=== PATIENT | male | born 1990 | race Hispanic/Latino ===

== ENCOUNTER 2023-01-19 08:04 | Emergency (ER) | payer OTHER ==
[~2023-01-19] VITALS: Ht 180.3 cm; Wt 114.6 kg
[2023-01-19 11:12] LABS: BASO # 0.1 10^3/uL (0.0-0.2); BASO % 0.7 % (0.0-1.0); EOS # 0.4 10^3/uL (0.0-0.5); EOS % 6.2 % (0.0-3.0); HEMATOCRIT 45.5 % (42.0-52.0); HEMOGLOBIN 15.6 g/dl (13.5-17.5); LYMPH # 1.8 10^3/uL (1.5-5.0); LYMPH % 27.1 % (24.0-44.0); MEAN CORPUSCULAR HEMOGLOBIN 29.2 pg (27.0-33.0); MEAN CORPUSCULAR HGB CONC 34.3 g/dl (32.0-36.5); MONO # 0.4 10^3/uL (0.0-0.8); MONO % 5.6 % (2.0-8.0); NEUTROPHILS # 4.1 10^3/uL (1.5-8.5); PLATELET COUNT, AUTOMATED 244 10^3/uL (150-450); RED BLOOD COUNT 5.35 10^6/uL (4.30-6.10); WHITE BLOOD COUNT 6.8 10^3/uL (4.0-10.0)
[2023-01-19 11:33] LABS: LIPASE 35 U/L (12-53)
[2023-01-19 11:34] LABS: CK-MB VALUE MASS < 1.0 NG/ML (<3.6)
[2023-01-19 11:35] LABS: ALBUMIN 4.7 G/DL (3.2-5.2); ALKALINE PHOSPHATASE 98 U/L (46-116); ALT/SGPT 19 U/L (7.0-40); AST/SGOT < 8 U/L (<34); BILIRUBIN,DIRECT 0.2 MG/DL (<0.4); BILIRUBIN,TOTAL 0.5 MG/DL (0.3-1.2); BLOOD UREA NITROGEN 19 MG/DL (9-23); CALCIUM LEVEL 9.7 MG/DL (8.5-10.1); CARBON DIOXIDE LEVEL 28 MMOL/L (20-31); CHLORIDE LEVEL 103 MMOL/L (98-107); CREATININE FOR GFR 0.88 MG/DL (0.70-1.30); GLOMERULAR FILTRATION RATE > 60.0 (>60); GLUCOSE, FASTING 92 MG/DL (60-100); POTASSIUM SERUM 4.6 MMOL/L (3.5-5.1); SODIUM LEVEL 138 MMOL/L (136-145); TOTAL PROTEIN 7.8 G/DL (5.7-8.2)
[2023-01-19 11:39] LABS: CPK CREATINE PHOSPHOKINASE 113 U/L (46-171); MB/CK RELATIVE INDEX 0.88 (< OR =4)
[2023-01-19 12:42] VITALS: BP 128/80; TEMP 98.4; O2SAT 99
== END 2023-01-19 12:46 | disposition home or self-care (01) ==
LOC: M ED 08:04
DX: R07.89 Other chest pain (principal); Z82.49 Family history of ischemic heart disease and other diseases of the circulatory system; Z88.6 Allergy status to analgesic agent

== ENCOUNTER → 2023-04-13 | Outpatient (CLI) | payer OTHER | LOC: M SOG 13:14 | PROVIDERS: ATTEND Physician Assistant | DX: M25.531 Pain in right wrist (principal) ==

== ENCOUNTER 2023-06-04 06:01 | Day surgery (SDC) | payer OTHER ==
[~2023-06-04] VITALS: Ht 180.3 cm; Wt 127.8 kg
[2023-06-04] MEDS ORDERED: MIDAZOLAM INJ 2MG/2ML VIAL As Ordered ONE (07:25)
[2023-06-04] MEDS ORDERED: fentaNYL 100 MCG/2 ML INJECTION As Ordered ONE ×2 (07:25→10:12)
[2023-06-04] MEDS ORDERED: LIDOCAINE 2% 100MG/5ML SDV (FOR ANES.) As Ordered ONE (07:27)
[2023-06-04] MEDS ORDERED: ONDANSETRON 4MG 2ML VIAL As Ordered ONE (07:27)
[2023-06-04] MEDS ORDERED: propofoL 200 MG/20 ML VIAL As Ordered ONE ×2 (07:27→09:59)
[2023-06-04] MEDS ORDERED: ceFAZolin SOD 3 GM in IV 1 EA IV ONE (07:35)
[2023-06-04] MEDS ORDERED: ceFAZolin SOD 1 GM in D5W MINI-BAG PLUS 50 ML IV ONE (08:00)
[2023-06-04] MEDS ORDERED: ceFAZolin SOD 2 GM in IV 1 EA IV ONE (08:00)
[2023-06-04] MEDS ORDERED: BACITRACIN OINTMENT 30GM TUBE As Ordered ONE (09:20)
[2023-06-04] MEDS ORDERED: ACETAMINOPHEN 1000MG 100ML IV BAG As Ordered ONE (09:48)
[2023-06-04] MEDS ORDERED: dexmedeTOMIDine (4MCG/ML)200MCG/50ML BTL (PRECEDEX) As Ordered ONE (09:57)
[2023-06-04] MEDS ORDERED: SEVOFLURANE INHAL SOLN 250 ML BTL As Ordered ONE (10:37)
[2023-06-04] MEDS ORDERED: HYDROMORPHONE HCL 0.5 MG/ 0.5 ML SYRINGE IV PRN (10:50)
[2023-06-04] MEDS ORDERED: fentaNYL 100 MCG/2 ML INJECTION IV PRN (10:50)
[2023-06-04] MEDS ORDERED: ONDANSETRON 4MG 2ML VIAL IV PRN (10:50)
[2023-06-04] MEDS ORDERED: oxyCODONE 5MG TAB PO PRN (10:50)
[2023-06-04] MEDS ORDERED: LR 1,000 ML IV SCH (10:50)
[2023-06-04] MEDS ORDERED: PERC5TAB12 PO (10:53)
[2023-06-04 11:26] VITALS: BP 129/65; TEMP 97.9; O2SAT 96
== END 2023-06-04 11:58 | disposition home or self-care (01) ==
LOC: M SDC 06:01
PROVIDERS: ATTEND Orthopaedic Surgery Hand Surgery
DX: M67.431 Ganglion, right wrist (principal); R07.9 Chest pain, unspecified; G47.9 Sleep disorder, unspecified; Z88.6 Allergy status to analgesic agent; Z91.013 Allergy to seafood
CPT/HCPCS: 25111; 88305; J0131; J0665; J1100; J2250; J2405; J3010

== ENCOUNTER 2024-01-14 10:50 | Emergency (ER) | payer OTHER ==
[~2024-01-14] VITALS: Ht 180.3 cm; Wt 128.9 kg
[~2024-01-14 10:50] MED LIST: PERC5TAB12 PO
[2024-01-14] MEDS ORDERED: DULO1CAP4 PO (10:57)
[2024-01-14] MEDS ORDERED: ACET-907 PO (10:57)
[2024-01-14 11:50] LABS: BASO # 0.1 10^3/uL (0.0-0.2); BASO % 0.7 % (0.0-1.0); EOS # 0.3 10^3/uL (0.0-0.5); EOS % 4.5 % (0.0-3.0); HEMATOCRIT 40.9 % (42.0-52.0); HEMOGLOBIN 14.4 g/dl (13.5-17.5); LYMPH # 1.6 10^3/uL (1.5-5.0); LYMPH % 24.2 % (24.0-44.0); MEAN CORPUSCULAR HGB CONC 35.2 g/dl (32.0-36.5); MEAN CORPUSCULAR VOLUME 82.3 fl (80.0-96.0); MONO # 0.4 10^3/uL (0.0-0.8); MONO % 6.2 % (2.0-8.0); NEUTROPHILS # 4.3 10^3/uL (1.5-8.5); NEUTROPHILS % 64.1 % (36.0-66.0); PLATELET COUNT, AUTOMATED 232 10^3/uL (150-450); RED BLOOD COUNT 4.97 10^6/uL (4.30-6.10); WHITE BLOOD COUNT 6.7 10^3/uL (4.0-10.0)
[2024-01-14 12:24] LABS: LIPASE 30 U/L (12-53)
[2024-01-14 12:26] LABS: ALBUMIN 4.4 G/DL (3.2-5.2); ALKALINE PHOSPHATASE 104 U/L (46-116); ALT/SGPT 28 U/L (7.0-40); AST/SGOT 15 U/L (<34); BILIRUBIN,DIRECT 0.2 MG/DL (<0.4); BILIRUBIN,TOTAL 0.6 MG/DL (0.3-1.2); BLOOD UREA NITROGEN 14 MG/DL (9-23); CALCIUM LEVEL 9.2 MG/DL (8.5-10.1); CARBON DIOXIDE LEVEL 27 MMOL/L (20-31); CHLORIDE LEVEL 102 MMOL/L (98-107); CK-MB VALUE MASS < 1.0 NG/ML (<3.6); CREATININE FOR GFR 0.93 MG/DL (0.70-1.30); GLOMERULAR FILTRATION RATE > 60.0 (>60); GLUCOSE, FASTING 87 MG/DL (60-100); POTASSIUM SERUM 3.9 MMOL/L (3.5-5.1); SODIUM LEVEL 135 MMOL/L (136-145); TOTAL PROTEIN 7.1 G/DL (5.7-8.2)
[2024-01-14 12:28] LABS: FREE T4 1.14 NG/DL (0.89-1.76); THYROID STIMULATING HORMONE 0.896 uIU/ML (0.55-4.78)
[2024-01-14 12:30] LABS: CPK CREATINE PHOSPHOKINASE 93 U/L (46-171); MB/CK RELATIVE INDEX 1.07 (< OR =4)
[2024-01-14] MEDS: ACETAMINOPHEN 325 MG TAB PO ONE (12:51)
[2024-01-14] MEDS: hydrOXYzine 50 MG TAB PO STA (12:51)
[2024-01-14 13:15] LABS: CK-MB VALUE MASS < 1.0 NG/ML (<3.6)
[2024-01-14 13:18] VITALS: BP 120/68; TEMP 97.1; O2SAT 100
[2024-01-14 13:19] LABS: CPK CREATINE PHOSPHOKINASE 98 U/L (46-171); MB/CK RELATIVE INDEX 1.02 (< OR =4)
[2024-01-14] MEDS ORDERED: HYDR-3363 PO (13:55)
== END 2024-01-14 14:01 | disposition home or self-care (01) ==
LOC: M ED 10:50
DX: R07.89 Other chest pain (principal); F41.9 Anxiety disorder, unspecified; Z88.8 Allergy status to other drugs, medicaments and biological substances; Z79.1 Long term (current) use of non-steroidal anti-inflammatories (NSAID); Z79.899 Other long term (current) drug therapy

== ENCOUNTER → 2024-03-17 | Outpatient (REF) ==
[~2024-03-17] MED LIST changes: +ACET-907 PO; +DULO1CAP4 PO; +HYDR-3363 PO
== END ==
LOC: M PLAIMG 10:40
PROVIDERS: ATTEND Internal Medicine
DX: R52 Pain, unspecified (principal)

== ENCOUNTER 2024-04-22 16:14 | Inpatient (IN) | payer OTHER ==
[~2024-04-22] VITALS: Ht 180.3 cm; Wt 136.7 kg
[2024-04-22 17:02] LABS: HEMATOCRIT 41.3 % (42.0-52.0); HEMOGLOBIN 14.4 g/dl (13.5-17.5); MEAN CORPUSCULAR HEMOGLOBIN 28.5 pg (27.0-33.0); MEAN CORPUSCULAR HGB CONC 34.9 g/dl (32.0-36.5); MEAN CORPUSCULAR VOLUME 81.6 fl (80.0-96.0); PLATELET COUNT, AUTOMATED 291 10^3/uL (150-450); RED BLOOD COUNT 5.06 10^6/uL (4.30-6.10); WHITE BLOOD COUNT 8.8 10^3/uL (4.0-10.0)
[2024-04-22 17:33] LABS: ETHYL ALCOHOL (ETHANOL) < 0.003 % (0.000-0.010)
[2024-04-22 17:35] LABS: ALBUMIN 4.2 G/DL (3.2-5.2); ALKALINE PHOSPHATASE 102 U/L (40-129); ALT/SGPT 56 U/L (7.0-40); AST/SGOT 18 U/L (<34); BILIRUBIN,DIRECT 0.1 MG/DL (<0.4); BILIRUBIN,TOTAL 0.3 MG/DL (0.3-1.2); BLOOD UREA NITROGEN 14 MG/DL (9-23); CALCIUM LEVEL 9.9 MG/DL (8.5-10.1); CARBON DIOXIDE LEVEL 24 MMOL/L (20-31); CHLORIDE LEVEL 106 MMOL/L (98-107); CREATININE FOR GFR 0.84 MG/DL (0.70-1.30); GLOMERULAR FILTRATION RATE > 60.0 (>60); GLUCOSE, FASTING 92 MG/DL (60-100); SALICYLATE LEVEL < 3.0 MG/DL (<30); SODIUM LEVEL 137 MMOL/L (136-145); TOTAL PROTEIN 7.7 G/DL (5.7-8.2)
[2024-04-22 17:38] LABS: THYROID STIMULATING HORMONE 1.913 uIU/ML (0.55-4.78)
[2024-04-22] MEDS ORDERED: D 50CAP2 PO (17:42)
[2024-04-22] MEDS ORDERED: DULO1CAP5 PO (17:42)
[2024-04-22] MEDS ORDERED: med rec comment (17:43)
[2024-04-22] MEDS ORDERED: HOME MED LIST COMPLETE! XX SCH (17:45)
[2024-04-22 18:14] LABS: AMPHETAMINES LEVEL URINE NEGATIVE (NEGATIVE); BARBITURATES URINE NEGATIVE (NEGATIVE); BENZODIAZEPINES URINE NEGATIVE (NEGATIVE); CANNABINOIDS URINE NEGATIVE (NEGATIVE); COCAINE METABOLITE URINE NEGATIVE (NEGATIVE); METHADONE URINE NEGATIVE (NEGATIVE); OPIATES URINE NEGATIVE (NEGATIVE); PHENCYCLIDINE URINE NEGATIVE (NEGATIVE)
[2024-04-22] MEDS ORDERED: MAALOX 30 ML SUSP *UDC PO PRN (19:45)
[2024-04-22] MEDS ORDERED: MOM 30ML SUSPENSION UDC PO PRN (19:45)
[2024-04-22] MEDS: DULoxetine 30MG CAPSULE (CYMBALTA) PO ONE (20:31)
[2024-04-22] MEDS: diphenhydrAMINE 25MG CAP PO PRN (22:26)
[2024-04-22 22:45] VITALS: BP 130/80; TEMP 98; O2SAT 96
[2024-04-23 06:19] VITALS: BP 160/82; TEMP 97.9; O2SAT 100
[2024-04-23] MEDS: DULoxetine 30MG CAPSULE (CYMBALTA) PO SCH (13:22)
[2024-04-23 15:13] VITALS: BP 157/93; TEMP 97.2; O2SAT 99
[2024-04-23] MEDS: CALCIUM CARBONATE 500 MG CHEW U/D PO SCH (17:35)
[2024-04-23] MEDS: busPIRone 10 MG TAB PO SCH (21:45)
[2024-04-23] MEDS: DIVALPROEX 125 MG TAB PO SCH (21:46)
[2024-04-24] MEDS: ACETAMINOPHEN 325 MG TAB PO PRN (06:04)
[2024-04-24 06:25] VITALS: BP 142/89; TEMP 98.2; O2SAT 96
[2024-04-24] MEDS: PANTOPRAZOLE 40MG TAB (PROTONIX) PO SCH (08:37)
[2024-04-24 15:17] VITALS: BP 151/83; TEMP 97; O2SAT 97
[2024-04-24] MEDS: traZODone 50 MG TAB PO PRN (20:28)
[2024-04-25 06:18] VITALS: BP 141/93; TEMP 98.2; O2SAT 97
[2024-04-25 09:01] VITALS: BP 132/90; O2SAT 98
[2024-04-25 17:02] VITALS: BP 149/80; TEMP 97.4; O2SAT 100
[2024-04-26 06:27] VITALS: BP 144/88; TEMP 97.4; O2SAT 100
[2024-04-26 16:07] VITALS: BP 144/90; TEMP 98.1; O2SAT 98
[2024-04-27 06:42] VITALS: BP 140/89; TEMP 97.6; O2SAT 98
[2024-04-27 16:00] VITALS: BP 140/89; TEMP 97.6; O2SAT 98
[2024-04-27 16:24] VITALS: BP 136/75; TEMP 97.7; O2SAT 100
[2024-04-28 06:35] VITALS: BP 127/88; TEMP 96.8; O2SAT 98
[2024-04-28 15:29] VITALS: BP 139/88; TEMP 97.4; O2SAT 98
[2024-04-29 06:43] VITALS: BP 128/93; TEMP 96.6; O2SAT 99
[2024-04-29] MEDS ORDERED: DEPA1TAB PO (09:03)
[2024-04-29] MEDS ORDERED: CYMB1CAP5 PO (09:03)
[2024-04-29] MEDS ORDERED: BUSP10TA PO (09:03)
[2024-04-29] MEDS ORDERED: TRAZ-252 PO (09:03)
[2024-04-29] MEDS ORDERED: PANT40TA29 PO (09:03)
== END 2024-04-29 11:00 | disposition home or self-care (01) | DRG 885 ==
LOC: M ED 16:14 → EDBD 16:14 → M ED INP 19:44 → M PSY 21:50
PROVIDERS: ADMIT Psychiatry & Neurology Psychiatry; ATTEND Psychiatry & Neurology Psychiatry
DX: F39 Unspecified mood [affective] disorder (principal); R45.851 Suicidal ideations; F41.9 Anxiety disorder, unspecified; K21.9 Gastro-esophageal reflux disease without esophagitis; R45.850 Homicidal ideations; Z83.3 Family history of diabetes mellitus; Z81.8 Family history of other mental and behavioral disorders; Z79.899 Other long term (current) drug therapy; Z88.6 Allergy status to analgesic agent; Z91.013 Allergy to seafood; Z56.2 Threat of job loss; R07.89 Other chest pain

== ENCOUNTER 2024-07-20 23:04 | Emergency (ER) | payer OTHER ==
[~2024-07-20] VITALS: Ht 180.3 cm; Wt 136.4 kg
[~2024-07-20 23:04] MED LIST changes: +BUSP10TA PO; +CYMB1CAP5 PO; +D 50CAP2 PO; +DEPA1TAB PO; +DULO1CAP5 PO; +PANT40TA29 PO; +TRAZ-252 PO; +med rec comment
[2024-07-21] MEDS ORDERED: METHOCARBAMOL 1,000 MG/10 ML VIAL IV ONE (03:55)
[2024-07-21] MEDS ORDERED: ACETAMINOPHEN *IV* 1,000 MG in IV 1 EA IV ONE (03:55)
[2024-07-21] MEDS: ACETAMINOPHEN 325 MG TAB PO ONE (04:42)
[2024-07-21] MEDS: methocarbamoL 750 MG TAB PO ONE (04:42)
[2024-07-21] MEDS ORDERED: METH-1165 PO (06:21)
[2024-07-21] MEDS ORDERED: MAPA500C PO (06:21)
[2024-07-21 06:39] VITALS: BP 124/68; TEMP 97.6; O2SAT 99
== END 2024-07-21 06:40 | disposition home or self-care (01) ==
LOC: EDBD 23:04 → M ED 23:04
DX: R53.81 Other malaise (principal); F32.A Depression, unspecified; F41.9 Anxiety disorder, unspecified; Z88.8 Allergy status to other drugs, medicaments and biological substances; Z91.013 Allergy to seafood; Z79.1 Long term (current) use of non-steroidal anti-inflammatories (NSAID); Z79.899 Other long term (current) drug therapy

== ENCOUNTER 2024-07-30 13:21 | Inpatient (IN) | payer OTHER ==
[~2024-07-30] VITALS: Ht 180.3 cm; Wt 140.9 kg
[~2024-07-30 13:21] MED LIST changes: +MAPA500C PO; +METH-1165 PO
[2024-07-30 14:30] LABS: HEMATOCRIT 42.8 % (42.0-52.0); HEMOGLOBIN 14.8 g/dl (13.5-17.5); MEAN CORPUSCULAR HEMOGLOBIN 28.5 pg (27.0-33.0); MEAN CORPUSCULAR HGB CONC 34.6 g/dl (32.0-36.5); MEAN CORPUSCULAR VOLUME 82.5 fl (80.0-96.0); PLATELET COUNT, AUTOMATED 297 10^3/uL (150-450); RED BLOOD COUNT 5.19 10^6/uL (4.30-6.10); WHITE BLOOD COUNT 7.8 10^3/uL (4.0-10.0)
[2024-07-30 14:47] LABS: ETHYL ALCOHOL (ETHANOL) 0.004 % (0.000-0.010); SALICYLATE LEVEL < 3.0 MG/DL (<30)
[2024-07-30 14:49] LABS: ALBUMIN 4.6 G/DL (3.2-5.2); ALKALINE PHOSPHATASE 105 U/L (40-129); ALT/SGPT 65 U/L (7.0-40); AST/SGOT 27 U/L (<34); BILIRUBIN,DIRECT 0.2 MG/DL (<0.4); BILIRUBIN,TOTAL 0.7 MG/DL (0.3-1.2); BLOOD UREA NITROGEN 17 MG/DL (9-23); CALCIUM LEVEL 9.7 MG/DL (8.5-10.1); CARBON DIOXIDE LEVEL 23 MMOL/L (20-31); CHLORIDE LEVEL 104 MMOL/L (98-107); CREATININE FOR GFR 0.84 MG/DL (0.70-1.30); GLOMERULAR FILTRATION RATE > 60.0 (>60); GLUCOSE, FASTING 92 MG/DL (60-100); POTASSIUM SERUM 4.1 MMOL/L (3.5-5.1); SODIUM LEVEL 141 MMOL/L (136-145); TOTAL PROTEIN 8.1 G/DL (5.7-8.2)
[2024-07-30 15:30] LABS: AMPHETAMINES LEVEL URINE NEGATIVE (NEGATIVE); BARBITURATES URINE NEGATIVE (NEGATIVE); BENZODIAZEPINES URINE NEGATIVE (NEGATIVE); CANNABINOIDS URINE NEGATIVE (NEGATIVE); COCAINE METABOLITE URINE NEGATIVE (NEGATIVE); METHADONE URINE NEGATIVE (NEGATIVE); OPIATES URINE NEGATIVE (NEGATIVE); PHENCYCLIDINE URINE NEGATIVE (NEGATIVE)
[2024-07-30 18:11] VITALS: BP 132/86; TEMP 97.4; O2SAT 100
[2024-07-30] MEDS ORDERED: diphenhydrAMINE 25MG CAP PO PRN (20:05)
[2024-07-30] MEDS ORDERED: ACETAMINOPHEN 325 MG TAB PO PRN (20:05)
[2024-07-30] MEDS ORDERED: MOM 30ML SUSPENSION UDC PO PRN (20:05)
[2024-07-30] MEDS ORDERED: MAALOX 30 ML SUSP *UDC PO PRN (20:05)
[2024-07-30] MEDS ORDERED: OLANZapine ORAL DISINTEGRATING TAB 5MG PO PRN (20:05)
[2024-07-31 06:41] VITALS: BP 135/85; TEMP 97.1; O2SAT 99
[2024-07-31] MEDS ORDERED: BUSP10TA PO (11:11)
[2024-07-31] MEDS ORDERED: ACET-683 PO (11:11)
[2024-07-31] MEDS ORDERED: DULO30CA9 PO (11:11)
[2024-07-31] MEDS ORDERED: METH-1165 PO (11:11)
[2024-07-31] MEDS ORDERED: PANT40TA29 PO (11:11)
[2024-07-31] MEDS ORDERED: TRAZ-252 PO (11:11)
[2024-07-31] MEDS ORDERED: DIVA1TAB48 PO (11:11)
[2024-07-31] MEDS ORDERED: DIVA250T67 PO (11:11)
[2024-07-31] MEDS ORDERED: HOME MED LIST COMPLETE! XX SCH (11:15)
[2024-07-31] MEDS: LIDOCAINE 5% (LIDODERM) PATCH TD ONE (14:33)
[2024-07-31] MEDS: CEPACOL LOZENGE PO PRN (14:41)
[2024-07-31] MEDS: BENZONATATE 100MG CAPSULE PO SCH (16:12)
[2024-07-31] MEDS: PERCOCET 5MG/325MG TAB PO PRN (16:13)
[2024-07-31 17:23] VITALS: BP 136/82; TEMP 98.1; O2SAT 97
[2024-07-31] MEDS: traZODone 50 MG TAB PO PRN (20:31)
[2024-08-01 06:40] VITALS: BP 127/82; TEMP 97.1; O2SAT 96
[2024-08-01] MEDS: LIDOCAINE 5% (LIDODERM) PATCH TD SCH (08:13)
[2024-08-01] MEDS ORDERED: busPIRone 10 MG TAB PO PRN (10:40)
[2024-08-01] MEDS: PANTOPRAZOLE 40MG TAB (PROTONIX) PO SCH (10:47)
[2024-08-01] MEDS: methocarbamoL 750 MG TAB PO SCH (11:33)
[2024-08-01 16:47] VITALS: BP 148/94; TEMP 98.1; O2SAT 100
[2024-08-01] MEDS: DIVALPROEX 250MG TAB PO SCH (20:41)
[2024-08-02 06:22] VITALS: BP 136/72; TEMP 97.5; O2SAT 99
[2024-08-02] MEDS: DIVALPROEX 250MG TAB PO SCH (11:10)
[2024-08-02 15:37] VITALS: BP 134/85; TEMP 97.7; O2SAT 96
[2024-08-03 06:19] VITALS: BP 156/89; TEMP 97.2; O2SAT 98
[2024-08-03] MEDS: LIDOCAINE 5% (LIDODERM) PATCH TD ONE (15:50)
[2024-08-03 16:13] VITALS: BP 140/94; TEMP 97.8; O2SAT 99
[2024-08-04 06:45] VITALS: BP 132/83; TEMP 97.2; O2SAT 99
[2024-08-04] MEDS: LIDOCAINE 5% (LIDODERM) PATCH TD SCH (09:59)
[2024-08-04 16:22] VITALS: BP 132/79; TEMP 97.8; O2SAT 98
[2024-08-05 06:23] VITALS: BP 144/74; TEMP 97.5; O2SAT 95
[2024-08-05] MEDS: busPIRone 10 MG TAB PO SCH (14:50)
[2024-08-05 15:45] VITALS: BP 139/82; TEMP 97.4; O2SAT 98
[2024-08-05] MEDS: DIVALPROEX 250MG TAB PO SCH (20:38)
[2024-08-05 22:58] LABS: URINE STREP PNEUMONIAE ANTIGEN NOT DETECTED (NOT DETECT)
[2024-08-06 06:32] VITALS: BP 129/70; TEMP 97; O2SAT 97
[2024-08-06] MEDS: ESCITALOPRAM OXALATE 10 MG TAB (LEXAPRO) PO SCH (08:46)
[2024-08-07] MEDS ORDERED: BUSP10TA PO (02:22)
[2024-08-07] MEDS ORDERED: LEXA1TAB PO (02:22)
[2024-08-07] MEDS ORDERED: DEPA250T32 PO (02:22)
[2024-08-07 06:25] VITALS: BP 139/66; TEMP 97.6; O2SAT 97
== END 2024-08-07 13:15 | disposition home or self-care (01) | DRG 880 ==
LOC: M ED 13:21 → M ED INP 16:46 → M PSY 17:56
PROVIDERS: ADMIT Psychiatry & Neurology Psychiatry; ATTEND Internal Medicine
DX: F41.1 Generalized anxiety disorder (principal); R45.851 Suicidal ideations; F39 Unspecified mood [affective] disorder; G89.29 Other chronic pain; J02.9 Acute pharyngitis, unspecified; K21.9 Gastro-esophageal reflux disease without esophagitis; R45.850 Homicidal ideations; F60.3 Borderline personality disorder; Z56.4 Discord with boss and workmates; Z91.013 Allergy to seafood; Z79.899 Other long term (current) drug therapy; Z88.6 Allergy status to analgesic agent